=== PATIENT | male | born 1985 | race Caucasian/White ===

== ENCOUNTER 2023-04-07 13:06 | Inpatient (IN) | payer SELFPAY ==
[~2023-04-07] VITALS: Ht 182.9 cm; Wt 72.7 kg
[2023-04-07 14:36] LABS: BILIRUBIN,URINE NEGATIVE (Neg); CLARITY,URINE CLEAR (Clear); GLUCOSE, URINE NEGATIVE (Neg); KETONES,URINE NEGATIVE (Neg); LEUKOCYTE ESTERASE ,URINE NEGATIVE (Neg); NITRITES, URINE NEGATIVE (Neg); OCCULT BLOOD,URINE TRACE-INTACT (Neg); PROTEIN,URINE 100 mg/dl (Neg)
[2023-04-07 14:43] LABS: COLOR,URINE DARK YELLOW (Yellow); UA COLLECTION TYPE CLN CATCH MIDSTREAM
[2023-04-07 14:47] LABS: BACTERIA,URINE FEW /HPF (Neg); MUCUS STRANDS MODERATE /LPF (Neg); SQUAMOUS EPITHELIAL CELL,UR FEW /LPF (FEW)
[2023-04-07 15:01] LABS: BASOPHILS % (AUTO) 0.1 % (0-1); EOSINOPHILS % (AUTO) 0 % (0-6); HEMATOCRIT 48.8 % (42.0-52.0); HEMOGLOBIN 16.3 g/dl (14.0-17.9); LYMPHOCYTES # (AUTO) 0.6 X10'3 (1.1-4.8); LYMPHOCYTES % (AUTO) 2.1 % (21-51); MEAN CORPUSCULAR HEMOGLOBIN 29.1 PG (27.0-31.0); MEAN CORPUSCULAR HGB CONC 33.4 g/dL (33.0-36.5); MEAN CORPUSCULAR VOLUME 87.1 FL (78-98); MEAN PLATELET VOLUME 7.5 FL (7.4-10.4); MONOCYTES # (AUTO) 1.6 X10'3 (0-0.9); MONOCYTES % (AUTO) 5.5 % (2-12); NEUTROPHILS # (AUTO) 27.9 X10'3 (1.8-7.7); NEUTROPHILS % (AUTO) 92.3 % (42-75); PLATELET COUNT 263 X10'3 (140-440); RED CELL DISTRIBUTION WIDTH 12.9 % (11.5-14.5)
[2023-04-07 15:10] LABS: WHITE BLOOD COUNT 30.2 X10'3 (4.5-11.0)
[2023-04-07 15:18] LABS: ALANINE AMINOTRANSFERASE 22 U/L (12-78); ALBUMIN 3.3 G/DL (3.4-5.0); ALBUMIN/GLOBULIN RATIO 0.8 (1.1-1.5); ALKALINE PHOSPHATASE 108 IU/L (46-116); ANION GAP 6 (8-16); ASPARTATE AMINO TRANSFERASE 16 U/L (10-37); BILIRUBIN,TOTAL 1.8 MG/DL (0.1-1.0); BLOOD UREA NITROGEN 13 MG/DL (7-18); BUN/CREATININE RATIO 10.2 (10.0-20.0); CALCIUM 9.4 MG/DL (8.5-10.1); CHLORIDE 96 MMOL/L (99-107); CREATININE 1.28 MG/DL (0.60-1.10); GLUCOSE 120 MG/DL (70-104); POTASSIUM 3.9 MMOL/L (3.5-5.1); SODIUM 131 MMOL/L (135-145); TOTAL CARBON DIOXIDE 28.7 MMOL/L (24-32); TOTAL PROTEIN 7.7 G/DL (6.4-8.2); eCRCL 81 ML/MIN; eGFR 63 ML/MIN
[2023-04-07 15:43] LABS: TOTAL CELLS COUNTED 100
[2023-04-07 15:44] LABS: PLATELET ESTIMATE NORMAL
[2023-04-07] MEDS ORDERED: normal saline 1000ML IV soln IV ONE (16:20)
[2023-04-07] MEDS ORDERED: piperacillin/tazo 3.375gm/50ml 50 ML IV ONE (16:20)
[2023-04-07] MEDS ORDERED: iohexol 300mg/ml 100ml inj. ONE (16:26)
[2023-04-07] MEDS ORDERED: vancomycin/NS 1 GM ADD-VANTAGE 250 ML X 1 DOSE IV ONE (17:20)
[2023-04-07] MEDS ORDERED: NO HOME MEDS (17:56)
[2023-04-07] MEDS ORDERED: magnesium 2GM in 50ml NS 50 ML IV PRN (18:35)
[2023-04-07] MEDS ORDERED: ondansetron/PF 4mg/2ml inj IV PRN (18:35)
[2023-04-07] MEDS ORDERED: magnesium 4gm in 100ml NS 100 ML IV PRN (18:35)
[2023-04-07] MEDS ORDERED: potassium Cl 20 mEq SR tablet PO PRN ×2 (18:35)
[2023-04-07] MEDS ORDERED: morphine 2 MG/ML inj. syringe IV PRN ×2 (18:35)
[2023-04-07] MEDS ORDERED: magnesium hydroxide 30ml (MOM) UD suspension PO PRN (18:35)
[2023-04-07] MEDS ORDERED: HYDROcodone/acetaminophen 5mg/325mg tablet PO PRN (18:35)
[2023-04-07] MEDS ORDERED: potassium Cl 40MEQ/1/2NS 520ml 520 ML IV PRN (18:35)
[2023-04-07] MEDS ORDERED: acetaminophen 325mg tablet PO PRN (18:35)
[2023-04-07] MEDS ORDERED: mag hydrox/Alum hydrox/simeth 30ml oral suspension PO PRN (18:35)
[2023-04-07] MEDS ORDERED: magnesium Cl slow-release 64mg tablet PO PRN (18:35)
[2023-04-07] MEDS: normal saline 1000ml 1,000 ML IV SCH (19:29)
[2023-04-07 19:35] LABS: PHOSPHORUS 1.9 MG/DL (2.3-4.5)
[2023-04-07 19:45] LABS: URINE AMPHETAMINE SCREEN POSITIVE (Neg); URINE BARBITUATE SCREEN NEGATIVE (Neg); URINE BENZODIAZEPINES SCREEN NEGATIVE (Neg); URINE CANNABINOID SCREEN NEGATIVE (Neg); URINE COCAINE SCREEN NEGATIVE (Neg); URINE METHADONE SCREEN NEGATIVE (Neg); URINE OPIATE SCREEN NEGATIVE (Neg); URINE PHENCYCLIDINE SCREEN NEGATIVE (Neg)
[2023-04-07 19:45] LABS: HEMOGLOBIN A1C 5.6 % (4.5-6.2)
[2023-04-07] MEDS: K and/or MAG REPLACEMENT MC SCH (20:15)
[2023-04-07] MEDS: HYDROcodone/acetaminophen 10/325mg tab PO PRN ×2 (20:21→21:00)
[2023-04-07] MEDS: heparin, porcine 5000 units/ml vial SQ SCH (20:23)
[2023-04-07] MEDS: piperacillin/tazo 3.375gm/50ml 50 ML IV SCH ×2 (22:01→22:03)
--- NOTE | 2023-04-07 22:03 | NUR ---
Patient placed on hospital bed. Patient resting quietly in bed with eyes closed. Pt in no acute distress. Respirations are even and unlabored. Patient denies any needs at this time.
[2023-04-08] MEDS ORDERED: ceFAZolin/D5W- 1GM premix 50 ML IV SCH
--- NOTE | 2023-04-08 00:16 | NUR ---
Patient resting quietly in bed with eyes closed. Respirations are even and unlabored. Pt in no acute distress.
--- NOTE | 2023-04-08 01:45 | NUR ---
Patient given ice water and sandwich. Patient resting in bed quietly with eyes open. Pt in no acute distress. Respirations are even and unlabored. Pt denies any needs at this time.
[2023-04-08] MEDS: normal saline 1000ml 1,000 ML IV SCH (02:31)
[2023-04-08] MEDS ORDERED: acetaminophen 325mg tablet PO PRN (03:55)
[2023-04-08] MEDS ORDERED: piperacillin/tazo 3.375gm/50ml 50 ML IV SCH ×2 (04:00→06:00)
[2023-04-08 04:26] LABS: BASOPHILS # (AUTO) 0.1 X10'3 (0-0.2); BASOPHILS % (AUTO) 0.2 % (0-1); EOSINOPHILS % (AUTO) 0.1 % (0-6); HEMATOCRIT 38.6 % (42.0-52.0); HEMOGLOBIN 13.1 g/dl (14.0-17.9); LYMPHOCYTES # (AUTO) 1.1 X10'3 (1.1-4.8); LYMPHOCYTES % (AUTO) 4.1 % (21-51); MEAN CORPUSCULAR HEMOGLOBIN 29.4 PG (27.0-31.0); MEAN CORPUSCULAR HGB CONC 33.9 g/dL (33.0-36.5); MEAN CORPUSCULAR VOLUME 86.5 FL (78-98); MEAN PLATELET VOLUME 7.5 FL (7.4-10.4); MONOCYTES # (AUTO) 2.3 X10'3 (0-0.9); MONOCYTES % (AUTO) 8.4 % (2-12); NEUTROPHILS # (AUTO) 23.8 X10'3 (1.8-7.7); NEUTROPHILS % (AUTO) 87.2 % (42-75); PLATELET COUNT 203 X10'3 (140-440); RED BLOOD COUNT 4.46 X10'6 (4.70-6.10); RED CELL DISTRIBUTION WIDTH 12.9 % (11.5-14.5)
[2023-04-08 04:38] LABS: WHITE BLOOD COUNT 27.3 X10'3 (4.5-11.0)
--- NOTE | 2023-04-08 04:40 | NUR ---
Patient provided with 3 ice packs. Room temperature decreased per pt request.
[2023-04-08 04:46] LABS: ALANINE AMINOTRANSFERASE 23 U/L (12-78); ALBUMIN 2.3 G/DL (3.4-5.0); ALBUMIN/GLOBULIN RATIO 0.7 (1.1-1.5); ALKALINE PHOSPHATASE 94 IU/L (46-116); ANION GAP 4 (8-16); ASPARTATE AMINO TRANSFERASE 16 U/L (10-37); BILIRUBIN,TOTAL 1.7 MG/DL (0.1-1.0); BLOOD UREA NITROGEN 10 MG/DL (7-18); BUN/CREATININE RATIO 9.4 (10.0-20.0); CALCIUM 8.5 MG/DL (8.5-10.1); CHLORIDE 103 MMOL/L (99-107); CREATININE 1.06 MG/DL (0.60-1.10); GLUCOSE 120 MG/DL (70-104); MAGNESIUM 1.7 MG/DL (1.5-2.4); POTASSIUM 3.7 MMOL/L (3.5-5.1); SODIUM 135 MMOL/L (135-145); THYROID STIMULATING HORMONE 0.94 ulU/ml (0.34-4.50); TOTAL CARBON DIOXIDE 27.8 MMOL/L (24-32); TOTAL PROTEIN 5.6 G/DL (6.4-8.2); eCRCL 98 ML/MIN; eGFR 79 ML/MIN
[2023-04-08] MEDS ORDERED: vancomycin/NS 1 GM ADD-VANTAGE 250 ML IV SCH (05:00)
[2023-04-08 05:10] LABS: TOTAL CELLS COUNTED 100
[2023-04-08 05:12] LABS: PLATELET ESTIMATE NORMAL
[2023-04-08 05:16] LABS: HYPERSEGMENTED NEUTROPHILS 2+
[2023-04-08 05:20] VITALS: TEMP 99.5
[2023-04-08 06:32] VITALS: BP 111/67; PULSE 101; RESP 14; O2SAT 100
[2023-04-08] MEDS: K and/or MAG REPLACEMENT MC SCH (07:32)
[2023-04-08] MEDS: heparin, porcine 5000 units/ml vial SQ SCH (07:41)
[2023-04-08] MEDS ORDERED: clindamycin 300mg/D5W 50mL 50 ML IV SCH (12:30)
[2023-04-09] MEDS ORDERED: VANCOMYCIN LEVEL IV ONE (04:30)
== END 2023-04-08 08:29 | disposition left against medical advice (07) | DRG 872 ==
LOC: ER 13:07 → ED HOLD 18:42
PROVIDERS: ADMIT Family Medicine; ATTEND Family Medicine
PROC: BW211ZZ Computerized Tomography (CT Scan) of Abdomen and Pelvis using Low Osmolar Contrast (ICD-10-PCS; principal; 2023-04-07)
DX: A41.9 Sepsis, unspecified organism (principal); L03.311 Cellulitis of abdominal wall; E87.1 Hypo-osmolality and hyponatremia; F15.10 Other stimulant abuse, uncomplicated; Z53.21 Procedure and treatment not carried out due to patient leaving prior to being seen by health care provider
CPT/HCPCS: 36415; 71045; 74177; 80053; 80305; 81001; 83036; 83605; 83735; 84100; 84145; 84443; 85007; 85025; 87040; 87088; 99285; G0378; J1644; J2543; J3370; J3490; J7030; Q9967

== ENCOUNTER 2023-08-29 14:03 | Emergency (ER) | payer MEDICAID, OTHER ==
[~2023-08-29] VITALS: Ht 182.9 cm; Wt 76.4 kg
[~2023-08-29 14:03] MED LIST: NO HOME MEDS
[2023-08-29 14:09] VITALS: BP 140/87; PULSE 110; RESP 18; O2SAT 97
== END 2023-08-29 14:55 | disposition home or self-care (01) ==
LOC: ER 14:04
DX: F15.10 Other stimulant abuse, uncomplicated (principal); Z79.899 Other long term (current) drug therapy
CPT/HCPCS: 99281